=== PATIENT | male | born 2000 | race Caucasian/White ===

== ENCOUNTER 2022-06-01 17:59 | Emergency (ER) | payer SELFPAY ==
[2022-06-01 18:05] VITALS: BP 132/74; PULSE 57; RESP 16; TEMP 37.1; O2SAT 100
--- NOTE | 2022-06-01 18:37 | ED.MALEGU ---
HPI - Male Genitourinary General Chief complaint: Urogenital-Male Stated complaint: Urinary Problem Time Seen by Provider: 06/01/22 18:22 Source: patient, RN notes reviewed and old records reviewed Mode of arrival: ambulatory Limitations: no limitations History of Present Illness HPI Narrative: 21-year-old male presents to express care with complaint of urinary burning and hurting for 1 month duration and some white discharge. Patient denies any lower abdominal discomfort denies any testicle pain and denies any back pain. Patient denies any concern for STDs states he has been with the same person for a year and a half and does not feel he needs to be tested at this time for STDs. Patient states that he has increased his water intake. MD Complaint: dysuria and other (pain burning with urination) Onset (ago): month(s) (1) Associated symptoms: Reports discharge (clear) Related Data Allergies Allergy/AdvReac Type Severity Reaction Status Date / Time No Known Allergies Allergy Verified 06/01/22 18:09 Review of Systems Review of Systems: CONSTITUTIONAL: Denies fever, chills, or sweats. EYES: Denies visual changes, redness, or discharge. ENT: Denies rhinorrhea, congestion, sore throat, or otalgia. CARDIOVASCULAR: Denies chest pain, palpitations, or edema. RESPIRATORY: Denies cough or dyspnea. GASTROINTESTINAL: Denies abdominal pain, nausea, vomiting, or diarrhea. GENITOURINARY: positive for dysuria no visible hematuria.states clear penile discharge, denies any testicle pain SKIN: Denies rash or itching. MUSCULOSKELETAL: Denies back pain, joint pain, or myalgia. NEUROLOGIC: Denies headache, numbness, or weakness. PSYCHIATRIC: Denies anxiety or depression. All systems reviewed & are unremarkable except as noted in HPI and below PMFSH Social History Social History (Updated 06/04/22 @ 14:25 by Yuliana Dorman NP) Smoking status: Never smoker Alcohol intake: never Substance use: never Living arrangements: with family Gender identity (if verbalized by the patient): Male Comments At time of signature agree with nursing documentation of past medical ,surgical, family, and social history. There is no relevant family history pertinent to presenting complaint. Exam Narrative: GENERAL: Well-appearing, well-nourished, and in no acute distress. HEAD: Normocephalic, atraumatic. EYES: PERRLA and EOMI. ENT: Nares clear, no rhinorrhea or epistaxis. Mucous membranes moist.TM's normal with food light reflex, throat pink with no lesions or swelling NECK: Supple.no lymphadenopathy CHEST: Clear to auscultation. No respiratory distress. SAO2 100% on room air HEART: Regular rate and rhythm. No murmur heard. Normal peripheral pulses. ABDOMEN: Soft, nontender, nondistended, normal active bowel sounds.denies any abdominal pain or any CVA tenderness on palpation EXTREMITIES: Normal range of motion. No edema. SKIN: Warm, dry, no rash. NEURO: No focal deficits. Alert and oriented x3. Course Course Level of Care: Express Care Visit Vital Signs Vital signs: Vital Signs Temperature 37.1 C 06/01/22 18:05 Pulse Rate 57 L 06/01/22 18:05 Respiratory Rate 16 06/01/22 18:05 Blood Pressure 132/74 06/01/22 18:05 Pulse Oximetry 100 06/01/22 18:05 Oxygen Delivery Room Air 06/01/22 18:05 Temperature 37.1 C 06/01/22 18:05 Pulse Rate 57 L 06/01/22 18:05 Respiratory Rate 16 06/01/22 18:05 Blood Pressure 132/74 06/01/22 18:05 Pulse Oximetry 100 06/01/22 18:05 Oxygen Delivery Room Air 06/01/22 18:05 MDM - Male Genitourinary MDM Narrative Medical decision making narrative: Instructed patient if increased pain with urination or any nausea or vomiting abdominal pain go to nearest ER with understanding voiced Differential Diagnosis Differential diagnosis: Likely urinary tract infection, urethritis, prostatitis and other (Bladder stone, kidney stone) Lab Data Attestation: I reviewed the patient's lab results. Asha
== END 2022-06-01 18:45 | disposition home or self-care (01) ==
PROVIDERS: Emergency Provider Registered Nurse
DX: R30.0 Dysuria (principal); N34.2 Other urethritis
CPT/HCPCS: 81003; 87086; 99213; G0463